=== PATIENT | female | born 1995 | race Caucasian/White ===

== ENCOUNTER 2022-12-03 11:31 | Emergency (ER) | payer MEDICAID ==
[~2022-12-03] VITALS: Ht 175.3 cm; Wt 59.1 kg
[2022-12-03 11:37] VITALS: BP 115/72
== END 2022-12-03 13:41 | disposition home or self-care (01) ==
LOC: ER 11:32
DX: Z04.1 Encounter for examination and observation following transport accident (principal); V89.2XXA Person injured in unspecified motor-vehicle accident, traffic, initial encounter; Y93.89 Activity, other specified; Y92.89 Other specified places as the place of occurrence of the external cause; Y99.8 Other external cause status
CPT/HCPCS: 71045; 99284